=== PATIENT | female | born 1970 | race Caucasian/White ===

== ENCOUNTER → 2018-04-15 | Outpatient (REF) ==
--- NOTE | 2018-04-15 14:34 | RADIOLOGY IMAGING REPORT ---
FACILITY: [facility] PATIENT NAME: Bonnie Wallace : 1970 MR: [id number] V: [id number] EXAM DATE: ORDERING PHYSICIAN: HETAL MEJIA TECHNOLOGIST: Location: [facility] [place] Patient: Bonnie Wallace : 1970 Visit/Account:[id number] Date of Sevice: 04/15/2018 Exam type: HAND COMPLETE RIGHT History: History of fourth and fifth metacarpal fracture x2 months, patient in cast Comparison: None. Findings: The right fourth and fifth fingers are casted in flexion. These are not well evaluated. There appea rs to be a slightly impacted fracture to the base of the right fifth metacarpal and possibly the base of the right fourth metacarpal. On the oblique view there suggestion of slight dorsal displacement of the distal fracture fragment of the right fifth metacarpal although on the lateral view due to ove rlapping shadows from the other metacarpals alignment is difficult to evaluate. IMPRESSION: 1. As above Report Dictated By: Allie Hammond MD at 04/15/2018 2:27 PM Report E-Signed By: Allie Hammond MD at 04/15/2018 2:29 PM WSN:[email or web address]
== END ==
LOC: RAD 13:36
PROVIDERS: ATTEND Registered Nurse Psychiatric/Mental Health
DX: S62.398A Other fracture of other metacarpal bone, initial encounter for closed fracture (principal)